=== PATIENT | female | born 1975 | race Caucasian/White ===

== ENCOUNTER 2020-01-28 08:25 | Day surgery (SDC) | payer OTHER ==
[2020-01-28 08:17] LABS: Specific Gravity <= 1.005 (1.005-1.030)
[2020-01-28 08:18] LABS: Absolute Lymphocytes (CBC) 1.2 K/uL (0.7-4.9); Basophils % 0.7 % (0-1.3); Hematocrit 38.6 % (36.0-45.0); Lymphocytes % 14.7 % (15.3-44.8); MPV 9.5 fL (7.6-11.3); RBC Red Blood Cell Count 4.12 M/uL (3.86-4.86)
[~2020-01-28 08:25] MED LIST: LIDOCAINE 1% W/EPI 1:100,000 MDV 20 ML VIAL ONE; Mastisol Adhesive Liq ONE; NS 0.9% VIAL 30 ML ONE; Ringers Lactate 1,000 ML IV ONE
--- NOTE | 2020-01-28 08:52 | RAD REPORT ---
EXAM DESCRIPTION: RAD - Chest Pa And Lat (2 Views) - 01/28/2020 8:18 am CLINICAL HISTORY: pre-op surgery COMPARISON: None TECHNIQUE: Frontal and lateral views of the chest were obtained. FINDINGS: The lungs are clear. Heart size is normal and central vasculature is within normal limit s. No pleural effusion or pneumothorax seen. No acute bony finding noted. No aortic abnormality. IMPRESSION: No acute cardiopulmonary process.
[2020-01-28] MEDS ORDERED: propofoL 200 MG/20 ML VIAL IV ONE (09:03)
[2020-01-28] MEDS ORDERED: FENTANYL CITR 250 MCG/5 ML ONE (09:03)
[2020-01-28] MEDS ORDERED: dexAMETHasone 10 MG/ML VIAL ONE (09:03)
[2020-01-28] MEDS ORDERED: MIDAZOLAM HCL 2 MG/2 ML INJ ONE (09:03)
[2020-01-28] MEDS ORDERED: LIDOCAINE 1% MPF 5 ML VIAL ONE (09:03)
[2020-01-28] MEDS ORDERED: NS 0.9% VIAL 10 ML ONE (09:04)
[2020-01-28] MEDS ORDERED: VECURONIUM 10 MG/VIAL IV ONE ×2 (09:04→09:09)
[2020-01-28] MEDS ORDERED: ONDANSETRON 4 MG/2 ML VIAL ONE ×2 (09:04→13:33)
[2020-01-28] MEDS ORDERED: LANO/MINERAL OIL/PETRO 3.5 GM ONE (09:09)
[2020-01-28] MEDS ORDERED: Ringers Lactate 1,000 ML IV ONE (09:12)
[2020-01-28] MEDS ORDERED: CEFAZOLIN/SWI 1gm 1 GM/10 ML SYR ONE (09:12)
[2020-01-28] MEDS ORDERED: SCOPOLAMINE HYDROBROMIDE PATCH TD ONE (09:31)
[2020-01-28] MEDS ORDERED: LIDOCAINE 1% W/EPI 1:100,000 MDV 20 ML VIAL ONE (09:43)
[2020-01-28] MEDS ORDERED: NS 0.9% VIAL 20 ML ONE (09:43)
[2020-01-28] MEDS: GENTAMICIN SULF 80 MG/2ML INJ ONE ×2 (10:42→11:59)
[2020-01-28] MEDS: CEFAZOLIN SODIUM 1 GM/VIAL ONE ×2 (10:42→11:59)
[2020-01-28] MEDS: BACITRACIN 50000 UNIT VIAL ONE ×2 (10:42→11:58)
[2020-01-28] MEDS ORDERED: GLYCOPYRROLATE 0.2 MG/ML SYR ONE (13:32)
[2020-01-28] MEDS ORDERED: KETOROLAC 30 MG/ML INJ ONE (13:33)
[2020-01-28] MEDS ORDERED: NEOSTIGMINE 1 MG/ML -5 ML ONE (13:33)
[2020-01-28] MEDS ORDERED: HYDROMORPHONE HCL 1 MG/ML INJ ONE (14:34)
[2020-01-28] MEDS: HYDROMORPHONE HCL 1 MG/ML INJ ONE ×4 (14:47→15:04)
[2020-01-28 15:49] VITALS: TEMP 97.4
[2020-01-28 16:34] VITALS: BP 104/55; O2SAT 96
--- NOTE | 2020-01-28 16:55 | EKG ---
Test Date: 2020-01-28 Test Time: 07:15:57 Education Analyst: ELIZABETH MEASUREMENT RESULTS: Intervals: Rate: 70 IA: 136 QRSD: 80 QT: 408 QTc: 440 Byers: P: 59 IA: 136 QRS: 81 T: 70 INTERPRETIVE STATEMENTS: Normal sinus rhythm Normal ECG No previous ECG available for comparison Electronically Signed On 01-28-20 16:54:52 CDT by Asif Mccarty
--- NOTE | 2020-01-28 17:55 | OP ---
Surgeon: Davis Ross MD Driftman: Huber. Preoperative Diagnosis: Breast asymmetry and descent. Postoperative Diagnosis: Breast asymmetry and descent. Procedure Performed: Lift with minor reduction. Anesthesia: General. Procedure In Detail: After satisfactory induction of general anesthesia, chest was prepped with DuraPrep and dry sterile drapes applied in the usual manner. A 45 template was used to outline the right and left areolas and the transverse and curvilinear incisions were sized. Then, intervening skin was de- epithelialized with a dermabrader or EpiCut. Then, a [id number] incision was made electrocautery. Flap was thinned to 1.2 cm. Flap was elevated toward the sternum, clavicle, and anterior axillary line. Inferior incision was made and then de-epithelization was performed with a cone after the lateral tissue was removed. Conization was performed with 2-0 PDS sutures. Straps were elevated in right breast at 12 o'clock, 1:30, and 3 o'clock positions and then the straps were then woven in and out the pectoralis major muscle back to the base of the cone, pectoralis muscle back to the base the cone, tied and sewn with 2- 0 PDS. This was done for 12 o'clock and 1:30 straps. The 3 o'clock strap was sewn over the sternum at the 3 o'clock position with 2-0 Ethibond. Left side was done in a mirror image manner. The wounds were temporarily stapled shut. Patient sat up. Site for asymmetry and dog ears were marked out. The patient then returned to supine and then a 10 YANET was brought out of the axilla and sewn in place with 2-0 silk. Dog ears were cut off laterally and then the wound was closed with 3-0 Vicryl subcu, then 3-0 PDS running subcuticular tied in the vertical meridian of both breasts. The patient was sat up. Site for new nipple -areolar complex was marked out. Tissue was cored out, delivered and then closed with interrupted 4-0 PDS followed by 4-0 PDS running subcuticular. Dressings consisted of tincture of benzoin, Steri-Strips, 5 x 5s, fluffs, and Kevon wrap. The patient tolerated the procedure well. The amount removed from the right breast was 100 g, left breast was 56 g. GH/MODL Voice ID: [id number] Report ID: [id number]
== END 2020-01-28 16:45 | disposition home or self-care (01) ==
LOC: OR 08:25
PROVIDERS: ATTEND Specialist
PROC: 0H0V0ZZ Alteration of Bilateral Breast, Open Approach (ICD-10-PCS; 2020-01-28)
PROC: 0H0V0ZZ Alteration of Bilateral Breast, Open Approach (ICD-10-PCS; principal; 2020-01-28 10:00)
DX: N64.81 Ptosis of breast (principal); N64.89 Other specified disorders of breast; E28.2 Polycystic ovarian syndrome
CPT/HCPCS: 93005; 85025; 36415; 84703; 81025; 88305; 71046; 19316; 19318; J2704; J1580; J2250; J3010; J1100; J1170 ×3; J2710; J0690 ×2; J7120 ×2; J2405 ×2